=== PATIENT | female | born 1990 | race African-American/Black ===

== ENCOUNTER 2024-02-23 09:59 | Emergency (ER) | payer MEDICAID, OTHER ==
[~2024-02-23] VITALS: Ht 152.4 cm; Wt 72.0 kg
[2024-02-23] MEDS ORDERED: BUTA-259 PO (12:29)
[2024-02-23 12:30] VITALS: BP 123/65; PULSE 80; RESP 18; TEMP 98; O2SAT 98
[2024-02-23] MEDS: KETOROLAC TROMETH 30 MG/ML 1ML VIAL IM ONE (13:29)
== END 2024-02-23 14:09 | disposition home or self-care (01) ==
LOC: ER 09:59
DX: G44.209 Tension-type headache, unspecified, not intractable (principal)
CPT/HCPCS: 96372; 99283; J1885